=== PATIENT | male | born 1985 | race Hispanic/Latino ===

== ENCOUNTER 2021-03-31 16:01 | Emergency (ER) | payer SELFPAY ==
[2021-03-31 16:44] LABS: Absolute Lymphocytes (CBC) 0.8 K/uL (0.7-4.9); Basophils % 0.2 % (0-1.3); Hematocrit 42.4 % (39.6-49.0); Lymphocytes % 5.6 % (15.3-44.8); MPV 7.6 fL (7.6-11.3)
[2021-03-31 16:59] LABS: Albumin 4.2 g/dL (3.4-5.0); Bilirubin Direct 0.1 mg/dL (0-0.2); Bilirubin Total 0.4 mg/dL (0.2-1.0); Potassium 3.9 mmol/L (3.5-5.1); Protein, Total 8.1 g/dL (6.4-8.2)
[2021-03-31] MEDS ORDERED: FAMOTIDINE 20 MG/2 ML VIAL IV ONE (17:02)
[2021-03-31] MEDS ORDERED: NA CHLORIDE 0.9% 1,000 ML ONE (17:02)
--- NOTE | 2021-03-31 18:04 | RAD REPORT ---
EXAM DESCRIPTION: CT - Abdomen Pelvis W Contrast - 03/31/2021 5:45 pm CLINICAL HISTORY: Abdominal pain COMPARISON: none. TECHNIQUE: Computed axial tomography of the abdomen pelvis was obtained. 100 cc Isovue-300 was admin istered intravenously. Oral contrast was not requested which limits evaluation of ella and appendix l . All CT scans are performed using dose optimization technique as appropriate and may include automated exposure control or mA/KV adjustment according to patient size. FINDINGS: Mild right hydronephrosis. Mild delay in concentration contrast within the right kidney. 5 millimeter calculus within the proximal to mid right ureter. The liver, spleen, pancreas, adrenal and left kidney appear unremarkable. There is no evidence of diverticulitis. Small umbilical hernia IMPRESSION: 5 millimeter calculus proximal to mid right ureter resulting in mild to moderate hydrone phrosis
[2021-03-31] MEDS ORDERED: ONDANSETRON 4 MG/2 ML VIAL ONE (18:14)
[2021-03-31] MEDS ORDERED: MORPHINE 4 MG/ML SYR ONE (18:14)
[2021-03-31 18:18] LABS: Blood Morphology Comment NOT SEEN (NOT SEEN); Platelet Estimate ADEQ; White Blood Cell Scan OK (OK)
[2021-03-31] MEDS ORDERED: KETOROLAC 30 MG/ML INJ ONE (18:18)
[2021-03-31] MEDS ORDERED: TAMSULOSIN 0.4 MG SR CAP ONE (19:16)
[2021-03-31] MEDS ORDERED: CEFTRIAXONE 1000 MG/VIAL ONE (19:17)
[2021-03-31] MEDS ORDERED: MAGNESIUM SULFATE 1 gm IVPB 1 GM/100 ML BAG IV ONE (19:17)
[2021-03-31] MEDS ORDERED: HYDROMORPHONE HCL 1 MG/ML INJ ONE (19:25)
[2021-03-31 19:26] LABS: Urine Blood 3+ (Negative); Urine Glucose Negative (Negative); Urine Protein Negative (Negative)
[2021-03-31 19:38] LABS: Urine Bacteria <20 /HPF (NONE SEEN); Urine RBC 20-50 /HPF (NONE SEEN)
--- NOTE | 2021-03-31 20:14 | EDPHYS ---
Physician Documentation [facility] Name: Harsh Cedillo Age: 35 yrs Sex: Male : 1985 Arrival Date: 03/31/2021 Time: 16:03 Bed 23 Private MD: ED Physician Cassie Hernandez HPI: 03/31 16:00 This 35 yrs old Male presents to ER via Unassigned with complaints of Abdominal Pain. cp 16:00 The patient presents with abdominal pain right lower quadrant. Onset: The cp symptoms/episode began/occurred today, after lunchtime. The symptoms do not radiate. 16:00 Associated signs and symptoms: Pertinent positives: nausea and vomiting, Pertinent cp negatives: chest pain, constipation, diarrhea, fever, testicular pain. 16:00 The symptoms are described as constant. Severity of pain: in the emergency department cp the pain is unchanged despite EMS interventions. Historical: - Allergies: 16:03 No Known Allergies; ll1 - PMHx: 16:03 None; ll1 - Immunization history:: Adult Immunizations up to date. - Social history:: Smoking status: unknown. ROS: 16:05 Constitutional: Negative for body aches, chills, fever, poor PO intake. cp 16:05 Eyes: Negative for injury, pain, redness, and discharge. cp 16:05 Cardiovascular: Negative for chest pain. 16:05 Respiratory: Negative for cough, shortness of breath, wheezing. 16:05 Abdomen/GI: Positive for abdominal pain, nausea and vomiting, Negative for diarrhea, constipation, hematemesis. Exam: 16:12 Head/Face: Normocephalic, atraumatic. cp 16:12 Constitutional: The patient appears in no acute distress, alert, awake, non-toxic, well developed, well nourished, uncomfortable. 16:12 Eyes: Periorbital structures: appear normal, Conjunctiva: normal, no exudate, no injection, Sclera: no appreciated abnormality, Lids and lashes: appear normal, bilaterally. 16:12 ENT: External ear(s): are unremarkable, Nose: is normal, Mouth: Lips: moist, Oral mucosa: moist, Posterior pharynx: Airway: no evidence of obstruction, patent. 16:12 Chest/axilla: Inspection: normal, Palpation: is normal, no crepitus, no tenderness. 16:12 Respiratory: the patient does not display signs of respiratory distress, Respirations: normal, no use of accessory muscles, no retractions, labored breathing, is not present, Breath sounds: are clear throughout, no decreased breath sounds. 16:12 Abdomen/GI: Inspection: abdomen appears normal, Bowel sounds: active, all quadrants, Palpation: soft, in all quadrants, moderate abdominal tenderness, in the right lower quadrant, rebound tenderness, is not appreciated, voluntary guarding, is elicited in the right lower quadrant, involuntary guarding, is not appreciated. 16:12 Back: pain, is absent, ROM is normal. 16:15 Skin: no rash present. cp 16:15 Neuro: Orientation: to person, place \T\ time. Mentation: is normal, Motor: moves all fours, strength is normal, Sensation: is normal. Vital Signs: 17:56 BP 132 / 81; Pulse 79; Resp 18; Pulse Ox 96% on R/A; Pain 10/10; ld1 18:49 BP 133 / 84; Pulse 81; Resp 18; Pulse Ox 98% on R/A; ld1 19:10 BP 126 / 79; Pulse 92; Resp 18; Temp 98.0; Pulse Ox 98% ; Pain 6/10; dc2 MDM: 16:05 Patient medically screened. cp 16:15 Differential diagnosis: appendicitis, cholecystitis, Cholelithiasis, gastritis, cp Pyelonephritis, Testicular Torsion, Ureterolithiasis, urinary tract infection. 20:13 Data reviewed: vital signs, nurses notes, lab test result(s), radiologic studies, CT cp scan. 20:13 Counseling: I had a detailed discussion with the patient and/or guardian regarding: the cp historical points, exam findings, and any diagnostic results supporting the discharge/admit diagnosis, lab results, radiology results, to return to the emergency department if symptoms worsen or persist or if there are any questions or concerns that arise at home. Response to treatment: the patient's symptoms have markedly improved after treatment, patient is well hydrated. VSS. Pain and nausea markedly improved with meds. Vomiting resolved. Will discharge to home for continued monitoring. 03/31 16:04 Order name: Basic Metabolic Panel; Complete Time: 17:22 cp 03/31 17:22 Interpretation: Normal except: CL 108; GLUC 143; GFR 78. cp 03/31 16:04 Order name: CBC with Diff; Complete Time: 18:32 cp 03/31 16:53 Interpretation: Normal except: WBC 14.20; JOSE% 89.9; LYM% 5.6; NEUT A 12.8. cp 03/31 16:04 Order name: Hepatic Function; Complete Time: 17:22 cp 03/31 17:22 Interpretation: Normal except: GLOB 3.9. cp 03/31 16:04 Order name: Lipase; Complete Time: 17:22 cp 03/31 17:22 Interpretation: Abnormal: LIP 68. cp 03/31 16:04 Order name: Urine Microscopic Only; Complete Time: 20:10 cp 03/31 20:10 Interpretation: Reviewed. 03/31 18:18 Order name: CBC Smear Scan; Complete Time: 18:32 EDMS 03/31 16:04 Order name: CT Abd/Pelvis - IV Contrast Only; Complete Time: 18:08 cp 03/31 19:26 Order name: Urine Dipstick-Ancillary; Complete Time: 20:10 EDMS 03/31 19:39 Order name: Urine Culture EDKS 03/31 16:04 Order name: IV Saline Lock; Complete Time: 16:05 cp 03/31 16:04 Order name: Labs collected and sent; Complete Time: 16:49 cp 03/31 16:04 Order name: Urine Dipstick-Ancillary (obtain specimen); Complete Time: 19:21 cp 03/31 18:32 Order name: Strain Urine; Complete Time: 20:26 cp 03/31 19:23 Order name: PO challenge; Complete Time: 20:24 cp Administered Medications: 16:05 Drug: Zofran (Ondansetron) 4 mg Route: IVP; Site: left antecubital; ld1 16:05 Drug: morphine 4 mg Route: IVP; Site: left antecubital; ld1 16:49 Drug: Pepcid (famotidine) 20 mg Route: IVP; Site: left antecubital; ld1 16:49 Drug: NS 0.9% 1000 ml Route: IV; Rate: 1 bolus; Site: left antecubital; ld1 17:59 Drug: morphine 4 mg Route: IVP; Site: left antecubital; ld1 17:59 Follow up: Response: No adverse reaction ld1 17:59 Drug: Zofran (Ondansetron) 4 mg Route: IVP; Site: left antecubital; ld1 17:59 Follow up: Response: No adverse reaction ld1 20:26 Follow up: Response: Nausea is decreased dc2 17:59 Drug: Ketorolac 15 mg Route: IVP; Site: left antecubital; ld1 17:59 Follow up: Response: No adverse reaction ld1 20:25 Follow up: Response: Pain is decreased dc2 19:01 Drug: Magnesium Sulfate 1 grams Route: IVPB; Infused Over: 1 hrs; Site: left ld1 antecubital; 19:31 Follow up: IV Status: Completed infusion; IV Intake: 100ml dc2 19:01 Drug: Flomax (tamsulosin) 0.4 mg Route: PO; ld1 19:02 Follow up: Response: No adverse reaction ld1 20:25 Follow up: Response: No adverse reaction dc2 19:01 Drug: Rocephin (cefTRIAXone) 1 grams Route: IV; Rate: calculated rate; Site: left ld1 antecubital; 19:02 Follow up: Response: No adverse reaction; IV Status: Completed infusion ld1 20:25 Follow up: Response: No adverse reaction dc2 19:02 Drug: Dilaudid (HYDROmorphone) 1 mg Route: IVP; Site: left antecubital; ld1 19:02 Follow up: Response: No adverse reaction ld1 20:28 Follow up: Response: Pain is decreased dc2 Disposition Summary: 03/31/21 20:14 Discharge Ordered Location: Home cp Problem: new cp Symptoms: have improved cp Condition: Stable cp Diagnosis - Calculus of ureter - right cp Followup: cp - With: Monty Granger MD - When: 2 - 3 days - Reason: Worsening of condition Discharge Instructions: - Discharge Summary Sheet cp - Kidney Stones cp - Renal Colic cp Forms: - Medication Reconciliation Form cp - Thank You Letter cp - Antibiotic Education cp - Prescription Opioid Use cp Prescriptions: - Flomax 0.4 mg Oral capsule - take 1 capsule by ORAL route once daily 1/2 hour following the same meal each cp day; 5 capsule; Refills: 0, Product Selection Permitted - Zofran 4 mg Oral Tablet - take 1 tablet by ORAL route every 12 hours As needed; 20 tablet; Refills: 0, cp Product Selection Permitted - Cipro 500 mg Oral Tablet - take 1 tablet by ORAL route every 12 hours for 7 days; 14 tablet; Refills: 0, cp Product Selection Permitted - Tylenol-Codeine #3 300 mg-30 mg Oral - take 2 tablet by ORAL route every 8-10 hours; 20 tablet; Refills: 0, Product cp Selection Permitted Signatures: Dispatcher [employer] EDMS Donald Andrews PA PA cp Lewis, Lynsay, RN RN ll1 Marisol New RN RN ld1 Allyn Ventura RN dc2 Corrections: (The following items were deleted from the chart) 04/01 16:40 03/31 16:00 Severity of pain: in the emergency department the pain is unchanged cp cp
--- NOTE | 2021-03-31 20:14 | ER ---
Nurse's Notes [facility] Name: Harsh Cedillo Age: 35 yrs Sex: Male : 1985 Arrival Date: 03/31/2021 Time: 16:03 Bed 23 Private MD: Diagnosis: Calculus of ureter-right Presentation: 03/31 16:03 Chief complaint: Patient states: R sided abd pain and R flank pain. Went to his doctor ll1 today, had blood in his urine. Went back to work, started N/V, so he called EMS. Coronavirus screen: Client denies travel out of the [place] in the last 14 days. Ebola Screen: Patient denies travel to an Ebola-affected area in the 21 days before illness onset. Initial Sepsis Screen: Does the patient meet any 2 criteria? No. Patient's initial sepsis screen is negative. Does the patient have a suspected source of infection? Yes: Acute abdominal pain. Risk Assessment: Do you want to hurt yourself or someone else? Patient reports no desire to harm self or others. Onset of symptoms was March 31, 2021. 16:03 Method Of Arrival: EMS: [facility] 1 16:03 Acuity: [place] 3 ll1 Historical: - Allergies: 16:03 No Known Allergies; ll1 - PMHx: 16:03 None; ll1 - Immunization history:: Adult Immunizations up to date. - Social history:: Smoking status: unknown. Screenin:56 Abuse screen: Denies threats or abuse. Denies injuries from another. Nutritional ld1 screening: No deficits noted. Tuberculosis screening: No symptoms or risk factors identified. Fall Risk None identified. Assessment: 17:56 General: Appears in no apparent distress. uncomfortable, Behavior is cooperative, ld1 appropriate for age, anxious. Pain: Complains of pain in left low back and right low back Pain does not radiate. Pain currently is 10 out of 10 on a pain scale. Quality of pain is described as stabbing, Pain began 4 hours ago. Is continuous. Neuro: Level of Consciousness is awake, alert, obeys commands, Oriented to person, place, time, situation. Cardiovascular: Capillary refill < 3 seconds Patient's skin is warm and dry. Respiratory: Airway is patent Respiratory effort is even, unlabored, Respiratory pattern is regular, symmetrical. GI: Abdomen is flat, non-distended, Bowel sounds present X 4 quads. Abd is soft Abd is non tender. : Reports pain in bilateral flank(s). : Reports inability to void. EENT: No signs and/or symptoms were reported regarding the EENT system. Derm: No signs and/or symptoms reported regarding the dermatologic system. Musculoskeletal: No signs and/or symptoms reported regarding the musculoskeletal system. 18:49 Reassessment: Patient appears in no apparent distress at this time. No changes from ld1 previously documented assessment. Patient and/or family updated on plan of care and expected duration. Pain level reassessed. Vital Signs: 17:56 BP 132 / 81; Pulse 79; Resp 18; Pulse Ox 96% on R/A; Pain 10/10; ld1 18:49 BP 133 / 84; Pulse 81; Resp 18; Pulse Ox 98% on R/A; ld1 19:10 BP 126 / 79; Pulse 92; Resp 18; Temp 98.0; Pulse Ox 98% ; Pain 6/10; dc2 ED Course: 16:03 Patient arrived in ED. ll1 16:03 Donald Andrews PA is PHCP. cp 16:03 Cassie Hernandez MD is Attending Physician. cp 16:03 Arm band placed on Patient placed in an exam room, on a stretcher. ll1 16:06 Triage completed. ll1 17:45 CT Abd/Pelvis - IV Contrast Only In Process Unspecified. EDMS 17:56 Patient has correct armband on for positive identification. Placed in gown. Bed in low ld1 position. Call light in reach. Side rails up X2. monitoring manager on. Pulse ox on. NIBP on. Door closed. Noise minimized. Warm blanket given. 17:56 No provider procedures requiring assistance completed. Maintain EMS IV. Dressing ld1 intact. Good blood return noted. Site clean \T\ dry. Gauge \T\ site: 20G LAC. 19:21 Urine Microscopic Only Sent. ld1 19:29 Allyn Ventura, EMILY is Primary Nurse. dc2 20:13 Monty Granger MD is Referral Physician. cp 20:28 IV discontinued, intact, bleeding controlled, No redness/swelling at site. Pressure dc2 dressing applied. Administered Medications: 16:05 Drug: Zofran (Ondansetron) 4 mg Route: IVP; Site: left antecubital; ld1 16:05 Drug: morphine 4 mg Route: IVP; Site: left antecubital; ld1 16:49 Drug: Pepcid (famotidine) 20 mg Route: IVP; Site: left antecubital; ld1 16:49 Drug: NS 0.9% 1000 ml Route: IV; Rate: 1 bolus; Site: left antecubital; ld1 17:59 Drug: morphine 4 mg Route: IVP; Site: left antecubital; ld1 17:59 Follow up: Response: No adverse reaction ld1 17:59 Drug: Zofran (Ondansetron) 4 mg Route: IVP; Site: left antecubital; ld1 17:59 Follow up: Response: No adverse reaction ld1 20:26 Follow up: Response: Nausea is decreased dc2 17:59 Drug: Ketorolac 15 mg Route: IVP; Site: left antecubital; ld1 17:59 Follow up: Response: No adverse reaction ld1 20:25 Follow up: Response: Pain is decreased dc2 19:01 Drug: Magnesium Sulfate 1 grams Route: IVPB; Infused Over: 1 hrs; Site: left ld1 antecubital; 19:31 Follow up: IV Status: Completed infusion; IV Intake: 100ml dc2 19:01 Drug: Flomax (tamsulosin) 0.4 mg Route: PO; ld1 19:02 Follow up: Response: No adverse reaction ld1 20:25 Follow up: Response: No adverse reaction dc2 19:01 Drug: Rocephin (cefTRIAXone) 1 grams Route: IV; Rate: calculated rate; Site: left ld1 antecubital; 19:02 Follow up: Response: No adverse reaction; IV Status: Completed infusion ld1 20:25 Follow up: Response: No adverse reaction dc2 19:02 Drug: Dilaudid (HYDROmorphone) 1 mg Route: IVP; Site: left antecubital; ld1 19:02 Follow up: Response: No adverse reaction ld1 20:28 Follow up: Response: Pain is decreased dc2 Intake: 19:31 IV: 100ml; Total: 100ml. dc2 Outcome: 20:14 Discharge ordered by . cp 20:26 Discharged to home ambulatory, with family. dc2 20:26 Condition: stable 20:26 Discharge instructions given to Instructed on Prescriptions given X 4. 20:29 Patient left the ED. dc2 Signatures: Dispatcher [employer] EDMS Donald Andrews PA PA cp Lewis, Lynsay RN RN ll1 Marisol New RN RN ld1 Allyn Ventura RN RN dc2
[2021-03-31 20:34] VITALS: O2SAT 98
[2021-03-31 20:35] VITALS: BP 126/79; TEMP 98
== END 2021-03-31 20:29 | disposition home or self-care (01) ==
LOC: ER 16:01
DX: N20.1 Calculus of ureter (principal)
CPT/HCPCS: 36415; 74177; 80048; 80076; 81003; 81015; 83690; 85025; 87086; 87088; 96365; 96375; 99284; J1170; J2405; J3475; J7030; Q9967